=== PATIENT | male | born 1995 | race Caucasian/White ===

== ENCOUNTER 2024-01-10 20:04 | Emergency (ER) | payer SELFPAY ==
[2024-01-10 21:18] VITALS: BP 133/75; PULSE 79; RESP 16; TEMP 37.2; O2SAT 99; BMI 26.4
--- NOTE | 2024-01-10 21:40 | ED_ITS ---
Discharge Plan Disposition Chief Complaint: PAIN Referrals Follow up/Referrals: Provider,Referral, MD [Primary Care Provider] - See instructions Activity Restrictions/Add. Instructions Additional Instructions/Restrictions: visita junior doctor de kieran sobre esta visita al departamento de emergencias. Clinical Impressions Clinical Impression: Numbness of tongue Print Language Print Language: Mongolian Discharge ED Provider: Se Cornelius General Adult HPI General Chief complaint: PAIN Stated complaint: Tongue is white with burning Time Seen by Provider: 01/10/24 21:12 Mode of Arrival: Ambulatory Source of Information: Patient Limitations: No Limitations Description of Symptoms (Recalled from ER Triage Doc. by RN): Pt states he has blisters on tongue for a week History of Present Illness HPI narrative: Please note that above description of symptoms, in this electronic medical record under categorization of recalled from ER triage doctor by RN are reflective of an initial nursing assessment, however, is not reflective of my full history and physical exam that was personally taken and clarified. Consequentially, this preceding description of symptoms, which may include the patient's categorized chief complaint in the EMR, do not reflect my personal clinical impression, and the ultimate description of history of present illness and patient stated complaints should be deferred to this section of the note. Unless stated otherwise or congruent with this section of the note, additional signs, symptoms, or incongruence should be interpreted as inaccurate with my clinical impression. Related Data Allergies Allergy/AdvReac Type Severity Reaction Status Date / Time No Known Allergies Allergy Verified 01/10/24 21:53 [facility] Disclaimer: The information contained in this section may have been updated after the patient was seen, as this information can be updated by other users. Social History Smoking Status: Never smoker alcohol intake: never current occupational status: employed Travel in the last 8 weeks: None ROS Obtained: Yes All systems reviewed & no additional complaints except as documented Physical Exam General General appearance: alert Head Head exam: atraumatic and normocephalic Eye Eye exam: Present normal appearance, PERRL and EOMI ENT ENT exam: Present other (No evidence of tonsillitis, exudate, pharyngeal erythema, uvular deviation, palatal swelling, trismus, external neck swelling, submental induration, dental abscess, angioedema, or other abnormal bibi pharyngeal findings) Neck Neck exam: Present normal inspection, full ROM and trachea midline Respiratory Respiratory exam: Absent respiratory distress, wheezes, stridor, accessory muscle use or prolonged expiratory phase Cardiovascular Cardiovascular exam: Present other (Pulses equal symmetric in upper and lower extremities) Abdominal Exam Abdominal exam: Present soft; Absent distention, tenderness or pulsatile mass Extremities Exam Extremities exam: Absent edema Neurological Exam Neurological exam: Present alert, oriented X3 and CN II-XII intact; Absent motor sensory deficit Skin Skin exam: Present warm and dry; Absent diaphoresis or erythema Medical Decision Making Medical Records Medical records reviewed: Yes I reviewed the patient's medical records. Screening: Per USPSTF and CDC recommendations, given the prevalence of disease in our region, it is our hospital?s policy to screen for HIV and viral Hepatitis for all patients aged 18 and over and those with ongoing risk factors. Vahe Inquiry Pt receiving controlled substance: No Vahe was queried for this patient: No Vital Signs: 01/10/24 21:18 Temperature 99.0 F Temperature Source Oral Pulse Rate [Right Brachial] 79 Respiratory Rate 16 Blood Pressure [Right Arm] 133/75 Blood Pressure Mean [Right Arm] 94 Blood Pressure Source [Right Arm] Automatic Cuff Blood Pressure Position [Right Arm] Sitting 02 Sat by Pulse Oximetry 99 Oxygen Delivery Method Room Air Lab Data Lab Results 01/10/24 22:19: Sodium 137, Potassium 3.6, Chloride 102, Carbon Dioxide 26, Anion Gap 12.6, BUN 13, Creatinine 0.80, Estimated Creat Clear 141, Estimated GFR 116, Est GFR ( Amer) 140, Glucose 110 H, Calcium 9.2, Total Bilirubin 0.6, AST 25, ALT 19, Alkaline Phosphatase 98, Total Protein 7.2, Albumin 4.5, Globulin 2.7, Albumin/Globulin Ratio 1.7 01/10/24 22:19 Orders (Tests/Meds): ORDERS Category Date Time Status CMP [Comprehensive Metabolic Panel] Stat Lab 01/10/24 22:19 Results Calcitonin Stat Lab 01/10/24 22:19 Received Intact Parathyroid Hormone Stat Lab 01/10/24 22:19 Results Medical Decision Narrative: 28-year-old male no relevant medical history presenting with tongue numbness. This been going on for weeks to months. Nothing particular makes it better or worse. He states is actually better now than it usually is. No numbness of his throat, voice changes, weakness, muscle spasms, vision changes, chest pain, shortness of breath, any other relevant history. History obtained with patient. Physical exam completely unremarkable. No evidence of tonsillitis, exudate, pharyngeal erythema, uvular deviation, palatal swelling, trismus, external neck swelling, submental induration, dental abscess, angioedema, or other abnormal bibi pharyngeal findings. Short of having anxiety attacks with transient numbness, I feel electrolyte disturbance is the most likely versus having some kind of endocrinologic abnormality. Labs were obtained. On independent interpretation, these demonstrated nonactionable findings. Because patient at baseline without signs or symptoms of clinical decompensation, deemed appropriate for discharge. Results were relayed to patient who voiced understanding and were agreeable to outpatient management and follow up. I discussed my clinical impression with patient and answered all questions. At this time, the evidence for any other entities in the differential is insufficient to warrant any further testing or ED observation. This was explained as well. Advisory was given that persistent or worsening symptoms require further evaluation. I confirmed the understanding of this discussion. Automation Machine Operator disclaimer Much of this encounter note is an electronic speed belt sander spoken language to printed text. Electronic speed belt sander of the spoken language may permit errors. Although I have reviewed the note, some errors may still exist. Critical Care Critical Care Time Critical Care Time: No
[2024-01-10 22:37] LABS: Albumin Level 4.5 g/dl (3.5-5.0); Chloride 102 mmol/L (98-107); Potassium 3.6 mmoL/L (3.5-5.1); Sodium 137 mmol/L (136-145)
[2024-01-10 22:40] LABS: Alanine Aminotransferase 19 U/L (12-78); Albumin/Globulin Ratio 1.7 (1.1-1.8); Alkaline Phosphatase 98 U/L (38-126); Anion Gap 12.6 mEq/L (5-15); Aspartate Amino Transferase 25 U/L (17-59); Bilirubin,Total 0.6 mg/dl (0.2-1.3); Blood Urea Nitrogen 13 mg/dl (9-20); Calcium 9.2 mg/dl (8.4-10.2); Carbon Dioxide 26 mmol/L (22.0-30.0); Creatinine Clearance Estimated 141 mL/min (50-200); Estimated Glomerular Filt Rate 116 ml/min (>60); GFR (African American) 140 ML/MIN (>60); Globulin 2.7 g/dL (1.3-3.2); Glucose 110 mg/dl (74-100); Total Protein,Serum 7.2 g/dl (6.3-8.2)
[2024-01-10 23:03] LABS: Intact Parathyroid Hormone 75.3 pg/mL (7.5-53.5)
[2024-01-10 23:04] VITALS: BP 120/70; PULSE 80; RESP 16; TEMP 36.9; O2SAT 98
[2024-01-13 17:26] LABS: Calcitonin 4.2 pg/mL (0.0-8.4)
== END 2024-01-10 23:05 | disposition home or self-care (01) ==
PROVIDERS: Emergency Provider Emergency Medicine
DX: K14.0 Glossitis (principal); K13.29 Other disturbances of oral epithelium, including tongue; R20.0 Anesthesia of skin
CPT/HCPCS: 80053; 82308; 83970; 99282

== ENCOUNTER 2024-10-13 11:14 | Emergency (ER) | payer SELFPAY ==
[2024-10-13] VITALS (7 sets, daily range): BP systolic 116–122; BP diastolic 69–79; PULSE 66–91; RESP 15–20; TEMP 36.9–37.6; O2SAT 97–100; BMI 24.3
--- NOTE | 2024-10-13 12:13 | PC.NURSE ---
attempt made to call patient back for triage, patient not in lobby at this time. will attempt again in a few minutes.
--- NOTE | 2024-10-13 12:21 | XR_ITS ---
PROCEDURE INFORMATION: Exam: XR Chest Exam date and time: 10/13/2024 12:35 PM Age: 29 years old Clinical indication: Pain; Right-sided; Additional info: Right sided abdomen/chest pain TECHNIQUE: Imaging protocol: Radiologic exam of the chest. Views: 1 view. COMPARISON: No relevant prior studies available. FINDINGS: Lungs: Unremarkable. No consolidation. Pleural spaces: Unremarkable. No pleural effusion. No pneumothorax. Heart/Mediastinum: Unremarkable. No cardiomegaly. Bones/joints: Unremarkable. IMPRESSION: No acute findings.
--- NOTE | 2024-10-13 12:45 | PC.NURSE ---
patient going to radiology for xray
--- NOTE | 2024-10-13 12:46 | PC.NURSE ---
1215- patient triaged and placed back in lobby. will place patient in room when one becomes available.
--- NOTE | 2024-10-13 12:49 | PC.NURSE ---
1216- patient triaged and placed back in lobby. Orders placed fir a chest xray. patient will be placed in treatment room when one becomes available.
--- NOTE | 2024-10-13 13:37 | PC.NURSE ---
patient pulled back into triage rooms for labwork. patient will be sent back to lobby until a treatment room becomes available.
[2024-10-13 13:50] LABS: Hematocrit 46.6 % (42.0-52.0); Hemoglobin 15.7 g/dL (14.1-18.0); Immature Granulocytes % 0.1 %; Mean Corpuscular HGB Conc 33.7 g/dL (31.8-35.4); Mean Corpuscular Hemoglobin 29.5 pg (27.0-31.2); Mean Corpuscular Volume 87.4 fl (80-94); Nucleated Red Blood Cells % 0 %; Platelet Count 268 K/mm3 (142-424); Red Blood Count 5.33 M/mm3 (4.60-6.20); Red Cell Distribution Width-SD 39.6 fL; White Blood Count 13.5 K/mm3 (4.8-10.8)
[2024-10-13 14:06] LABS: Albumin Level 4.6 g/dl (3.5-5.0); Chloride 103 mmol/L (98-107); Potassium 3.7 mmoL/L (3.5-5.1); Sodium 139 mmol/L (136-145)
[2024-10-13 14:09] LABS: Alanine Aminotransferase 29 U/L (12-78); Albumin/Globulin Ratio 1.5 (1.1-1.8); Alkaline Phosphatase 89 U/L (38-126); Anion Gap 13.7 mEq/L (5-15); Aspartate Amino Transferase 41 U/L (17-59); Bilirubin,Total 0.9 mg/dl (0.2-1.3); Blood Urea Nitrogen 10 mg/dl (9-20); Calcium 9.2 mg/dl (8.4-10.2); Carbon Dioxide 26 mmol/L (22.0-30.0); Creatinine Clearance Estimated 146 mL/min (50-200); Creatinine,Serum 0.80 mg/dl (0.66-1.25); Estimated Glomerular Filt Rate 115 ml/min (>60); GFR (African American) 139 ML/MIN (>60); Globulin 3.0 g/dL (1.3-3.2); Glucose 108 mg/dl (74-100); Total Protein,Serum 7.6 g/dl (6.3-8.2)
[2024-10-13 14:30] LABS: Troponin I < 0.01 ng/ml (0.00-0.034)
--- NOTE | 2024-10-13 14:35 | ED_ITS ---
<Statement entered by Richard Rowley MD - 10/13/24 18:28> I consulted the NATASHA, and we discussed the complexity of the problems being addressed. I approved the treatment and management plan for this patient's care in the emergency department, thus performing a substantial portion of the medical decision making. Ramon Rowley MD Discharge Plan Disposition Patient Disposition: Home, Self-Care Condition: Good Prescriptions Prescriptions: New doxycycline hyclate 100 mg capsule 100 mg PO BID 5 Days Qty: 10 0RF Referrals Follow up/Referrals: Provider,Referral, [Primary Care Provider, Medical] - See instructions Activity Restrictions/Add. Instructions Additional Instructions/Restrictions: Please return to the emergency department with any worsening signs or symptoms, please follow-up with your family doctor, in the upcoming days, please take your medication as prescribed, I recommend utilizing [id number] cold and flu medication as needed for relief. Clinical Impressions Clinical Impression: Atypical pneumonia Instructions Patient Instructions: Atypical Pneumonia, DI for Pneumonia -- Adult Print Language Print Language: Haitian Discharge ED Provider: Dk Floyd Adult HPI General Chief complaint: Abdominal Pain Stated complaint: Right side pain Time Seen by Provider: 10/13/24 14:21 Mode of Arrival: Ambulatory Source of Information: Patient Limitations: No Limitations Description of Symptoms (Recalled from ER Triage Doc. by RN): patient present to the ED for right sided abdominal pain. rating his pain 8/10, happened suddenly while he was working. History of Present Illness HPI narrative: 29-year-old male primarily Haitian-speaking (thus lot attendant was used for portion of this HPI) presents to the emergency department with his friend for a 1 to 2-day history of right-sided abdominal pain/chest pain that is worse with exertion, at maximal was an 8 out of 10, happened suddenly today while he was working, noticed that the other day while he was working as well, admits to shortness of breath with this episode, no trauma or injury per history, 1 episode of nausea and vomiting and lightheadedness today, no fever no chills, no chest pain currently while at rest, shortness of breath currently, denies any constipation, admits to 1 episode of diarrhea yesterday, denies urinary type symptomatology, denies any alcohol tobacco or drug use, denies any other real relevant past medical history takes no other medication at home, initial triage vitals are unremarkable, patient does state that his tongue is white . Please note that above description of symptoms, in this electronic medical record under categorization of recalled from ER triage doctor by RN are reflective of an initial nursing assessment, however, is not reflective of my full history and physical exam that was personally taken and clarified. Consequentially, this preceding description of symptoms, which may include the patient's categorized chief complaint in the EMR, do not reflect my personal clinical impression, and the ultimate description of history of present illness and patient stated complaints should be deferred to this section of the note. Unless stated otherwise or congruent with this section of the note, additional signs, symptoms, or incongruence should be interpreted as inaccurate with my clinical impression. Onset (ago): day(s) Related Data Previous Rx's ?Medication ?Instructions ?Recorded doxycycline hyclate 100 mg capsule 100 mg PO BID 5 day s #10 caps 10/13/24 Allergies Allergy/AdvReac Type Severity Reaction Status Date / Time No Known Allergies Allergy Verified 01/10/24 21:53 [facility] Disclaimer: The information contained in this section may have been updated after the patient was seen, as this information can be updated by other users. Social History (Updated 01/10/24 @ 23:07 by Se Cornelius MD) Smoking Status: Never smoker alcohol intake: never current occupational status: employed Travel in the last 8 weeks?: None Have you lived/traveled outside [place] in past 30 days?: No Contact w/someone who lives/traveled outside US past 30 days?: No Exposure to someone with infectious disease in past 14 days?: No Do you have a fever (greater than 100.4 F or 38 C)?: No Have you tested positive for COVID-19?: No Exposed to someone with COVID-19 in past 14 days?: No Do you have a sore throat?: No Do you have a cough?: No Do you have any weakness?: No Do you have any diarrhea?: No Are you experiencing any unusual bleeding?: No Do you have any muscle aches/pain?: No Do you have any abdominal pain?: No Are you experiencing loss of taste or smell?: No ROS Obtained: Yes All systems reviewed & no additional complaints except as documented Physical Exam General General appearance: alert and in no apparent distress Head Head exam: atraumatic and normocephalic Eye Eye exam: Present PERRL and EOMI ENT ENT exam: Present mucous membranes moist Neck Neck exam: Present normal inspection Chest Chest inspection: Present normal inspection and symmetric chest wall rise Respiratory Respiratory exam: Present normal lung sounds bilaterally; Absent respiratory distress Cardiovascular Cardiovascular exam: Present regular rate and normal rhythm Abdominal Exam Abdominal exam: Present soft and tenderness; Absent guarding, rebound, rigidity or Obando's sign Abdominal tenderness: Present RUQ, diffuse and mild Extremities Exam Extremities exam: Present normal inspection Neurological Exam Neurological exam: Present alert and oriented X3 Psychiatric Psychiatric exam: Present normal affect Skin Skin exam: Present warm and dry Medical Decision Making Medical Records Medical records reviewed: Yes I reviewed the patient's medical records. Screening: Per USPSTF and CDC recommendations, given the prevalence of disease in our region, it is our hospital?s policy to screen for HIV and viral Hepatitis for all patients aged 18 and over and those with ongoing risk factors. Vahe Inquiry Pt receiving controlled substance: No Vahe was queried for this patient: No Vital Signs: 10/13/24 12:16 10/13/24 14:30 10/13/24 15:00 Temperature 99.6 F Temperature Source Oral Pulse Rate 76 71 Pulse Rate [Right Radial] 79 Respiratory Rate 20 18 16 Blood Pressure 121/74 120/73 Blood Pressure [Right Arm] 116/69 Blood Pressure Mean 92 Blood Pressure Mean [Right Arm] 84 Blood Pressure Source [Right Arm] Automatic Cuff Blood Pressure Position [Right Arm] Sitting 02 Sat by Pulse Oximetry 98 100 100 Oxygen Delivery Method Room Air Room Air 10/13/24 15:30 10/13/24 15:33 10/13/24 16:18 Temperature Temperature Source Pulse Rate 91 H 72 66 Pulse Rate [Right Radial] Respiratory Rate 15 17 Blood Pressure 116/72 117/77 Blood Pressure [Right Arm] Blood Pressure Mean 91 Blood Pressure Mean [Right Arm] Blood Pressure Source [Right Arm] Blood Pressure Position [Right Arm] 02 Sat by Pulse Oximetry 97 99 100 Oxygen Delivery Method Room Air Lab Data Lab results reviewed: Yes I reviewed the patient's lab results. Lab Results 10/13/24 13:40: WBC 13.5 H, RBC 5.33, Hgb 15.7, Hct 46.6, MCV 87.4, MCH 29.5, MCHC 33.7, RDW 12.2, Plt Count 268, MPV 9.6, Neut % (Auto) 76.5, Lymph % (Auto) 14.6, [place] % (Auto) 7.0, Eos % (Auto) 1.3, Baso % (Auto) 0.5, Neut # (Auto) 10.3 H, Lymph # (Auto) 2.0, [place] # (Auto) 0.9, Eos # (Auto) 0.2, Baso # (Auto) 0.1, D -Dimer 0.77 H, Sodium 139, Potassium 3.7, Chloride 103, Carbon Dioxide 26, Anion Gap 13.7, BUN 10, Creatinine 0.80, Estimated Creat Clear 146, Estimated GFR 115, Est GFR ( Amer) 139, Glucose 108 H, Calcium 9.2, Total Bilirubin 0.9, AST 41, ALT 29, Alkaline Phosphatase 89, Troponin I < 0.01, Total Protein 7.6, Albumin 4.6, Globulin 3.0, Albumin/Globulin Ratio 1.5 10/13/24 15:07: Troponin I < 0.01 10/13/24 13:40 10/13/24 13:40 Orders (Tests/Meds): ED MEDICATIONS Discontinued Medications Generic Name Dose Route Start Last Admin Trade Name Freq PRN Reason Stop Dose Admin Iopamidol 75 ml 10/13/24 15:19 10/13/24 15:20 Iopamidol-370 (76%);100ml Bottle IV 10/13/24 15:20 75 ml ONCE ONE Administration Iopamidol 80 ml 10/13/24 15:40 10/13/24 15:41 Iopamidol-370 (76%);100ml Bottle IV 10/13/24 15:41 80 ml ONCE ONE Administration Ondansetron HCl 4 mg 10/13/24 14:50 10/13/24 15:31 Ondansetron 4mg/2ml Vial IV 10/13/24 14:51 4 mg ONCE ONE Administration Sodium Chloride 10 ml 10/13/24 15:19 10/13/24 15:20 Sodium Chloride 0.9% 10ml Syr (Rad Only) IV 10/13/24 15:20 10 ml ONCE ONE Administration Sodium Chloride 40 ml 10/13/24 15:40 10/13/24 15:41 0.9 % Sodium Chloride 50 Ml Vial IV 10/13/24 15:41 40 ml ONCE ONE Administration Sodium Chloride 10 ml 10/13/24 15:40 10/13/24 15:41 Sodium Chloride 0.9% 10ml Syr (Rad Only) IV 10/13/24 15:41 10 ml ONCE ONE Administration ORDERS Category Date Time Status CT abdomen pelvis w con Stat Cat Scan 10/13/24 14:[address] angio chest PE protocol Stat Cat Scan 10/13/24 15:19 Completed Chest XR -- portable [XR chest portable] Stat Exams 10/13/24 12:21 Completed Complete Blood Count Auto Diff Stat Lab 10/13/24 13:40 Completed Comprehensive Metabolic Panel Stat Lab 10/13/24 13:40 Completed D-Dimer Stat Lab 10/13/24 13:40 Completed Troponin I Q3H Lab 10/13/24 15:07 Completed Troponin I Q3H Lab 10/13/24 19:45 Ordered Troponin I Stat Lab 10/13/24 13:40 Completed Medical Decision Narrative: 29-year-old male primarily Haitian-speaking male presents the emergency department with right-sided chest pain/abdominal pain, 1 episode nausea vomiting lightheadedness today and yesterday, differential diagnose include but not limited to ACS, cardiac arrhythmia, electrolyte streams, costochondritis, PE, cholecystitis, choledocholithiasis, choledocho lithiasis, gastritis, GERD, panic attack, anxiety type reaction, other musculoskeletal chest pain among others. I discussed the patient's case with the attending physician Dr. Floyd Will obtain basic laboratory studies, troponin, EKG, CXR, will give 4 mg of Zofran for nausea, will obtain CT and pelvis with contrast, will obtain D-dimer. CBC is notable for mild leukocytosis of 13.5 otherwise unremarkable CMP within normal limits troponin within normal limits at less than 0.01 I reviewed the patient's chest x-ray along with the corresponding radiological report no acute findings D-dimer is minimally elevated at 0.77 thus will obtain CTA chest with without contrast. Repeat troponin within normal limits at less than 0.01 I reviewed the patient's CT abdomen pelvis with contrast along the corresponding radiologic report, no acute intra-abdominal process patchy groundglass opacity likely due to acute pneumonitis. I reviewed the patient's CTA chest with and without contrast, PE protocol, no acute pulmonary embolus or dissection, perigee airspace opacities in the lung bases greater on the left than the right probably acute pneumonia. Utilizing lot attendant, discussed results with the patient at the bedside, patient was given strict ED return precautions to treat patient's atypical pneumonia with doxycycline 100 mg p.o for 5 days. Patient voiced understanding and is in agreement with the current treatment plan/discharge plan. Patient will follow-up with PCP. Critical Care Critical Care Time Critical Care Time: No
--- NOTE | 2024-10-13 14:49 | CT_ITS ---
FINAL REPORT TECHNIQUE: After the administration of intravenous contrast, axial images were obtained through the abdomen and pelvis by computed tomography. This study was performed with technique to keep radiation doses as low as reasonably achievable, (ALARA). Individualized dose reduction techniques using automated exposure control or adjustment of the MA and/or KV according to the patient's size were employed. CLINICAL HISTORY: Right upper quadrant pain, nausea vomiting FINDINGS: Abdomen: There are patchy groundglass opacities at the lung bases, left greater than right likely due to acute pneumonitis. The liver is normal in size and attenuation. Gallbladder is present. The spleen is unremarkable. The adrenals are normal. The pancreas is unremarkable. The kidneys enhance appropriately. The aorta is normal in caliber. There is no free fluid or adenopathy. Pelvis: The appendix is normal. The urinary bladder is unremarkable. There is no free fluid or adenopathy. IMPRESSION: No acute intra-abdominal process. Patchy groundglass opacities likely due to acute pneumonitis. Reviewed, Interpreted and Dictated by Deuce Chou MD Transcribed by Diana Hickey Authenticated and [facility]
[2024-10-13 15:09] LABS: D-Dimer 0.77 ug/mL (0.0-0.5)
--- NOTE | 2024-10-13 15:19 | CT_ITS ---
FINAL REPORT TECHNIQUE: The patient was injected with IV contrast. Axial images were obtained through the chest in a PE protocol. 3-D reconstruction images were also performed. Individualized dose reduction techniques using automated exposure control or adjustment of the MA and/or KV according to patient's size were employed. CLINICAL HISTORY: SOA, CP elevated D-dimer COMPARISON: None FINDINGS: Mediastinal vasculature is adequately opacified. No pulmonary artery filling defects are identified to suggest PE. There is no aortic dissection. There is no axillary adenopathy. There is no hilar or mediastinal adenopathy. There is soft tissue density in the anterior mediastinum, that likely represents residual thymus. There are mild changes of centrilobular emphysema. Patchy airspace opacities are present in the lung bases, greater on the left than on the right, that likely represent acute pneumonia. The heart size is normal. There is no pericardial or pleural effusion. Limited images of the upper abdomen are unremarkable. IMPRESSION: No pulmonary embolus or dissection. Patchy airspace opacities in the lung bases, greater on the left than on the right, probably acute pneumonia. Reviewed, Interpreted and Dictated by Deuce Chou MD Transcribed by Janina Whitfield Authenticated and [facility]
[2024-10-13] MEDS: IOPAMIDOL-370 (76%);100ML BOTTLE 75 ML IV (15:20)
[2024-10-13] MEDS: SODIUM CHLORIDE 0.9% 10ML SYR (RAD ONLY) 10 ML IV ×2 (15:20→15:41)
[2024-10-13] MEDS: ONDANSETRON 4MG/2ML VIAL 4 MG IV (15:31)
[2024-10-13 15:39] LABS: Troponin I < 0.01 ng/ml (0.00-0.034)
[2024-10-13] MEDS: IOPAMIDOL-370 (76%);100ML BOTTLE 80 ML IV (15:41)
[2024-10-13] MEDS: 0.9 % SODIUM CHLORIDE 50 ML VIAL 40 ML IV (15:41)
== END 2024-10-13 17:06 | disposition home or self-care (01) ==
PROVIDERS: Physician Assistant; Student in an Organized Health Care Education/Training Program; Emergency Provider Student in an Organized Health Care Education/Training Program
DX: R10.11 Right upper quadrant pain (principal); J18.9 Pneumonia, unspecified organism
CPT/HCPCS: 71045; 71275; 74177; 80053; 84484; 85025; 85378; 96374; 99284; 99285; J2405; Q9967